=== PATIENT | male | born 1980 | race Caucasian/White ===

== ENCOUNTER 2022-10-23 13:07 | Emergency (ER) | payer MEDICAID ==
[~2022-10-23] VITALS: Ht 185.4 cm; Wt 68.6 kg
[2022-10-23] MEDS ORDERED: proCHLORperazine 10 MG/2 ml inj IV ONE (13:50)
[2022-10-23] MEDS ORDERED: morphine 4 MG/ML inj SYRINge IV ONE (13:50)
[2022-10-23] MEDS ORDERED: diphenhydrAMINE 50 mg/ml inj IV ONE (13:50)
[2022-10-23] MEDS ORDERED: normal saline 1000ml 1,000 ML IV ONE ×3 (13:55→14:40)
--- NOTE | 2022-10-23 13:56 | NUR ---
lab at bedside
[2022-10-23 14:17] LABS: BASOPHILS % (AUTO) 0.4 % (0-1); EOSINOPHILS % (AUTO) 0 % (0-6); HEMATOCRIT 46.6 % (42.0-52.0); LYMPHOCYTES # (AUTO) 0.6 X10'3 (1.1-4.8); LYMPHOCYTES % (AUTO) 8.1 % (21-51); MEAN CORPUSCULAR HEMOGLOBIN 31.6 PG (27.0-31.0); MEAN CORPUSCULAR HGB CONC 34.4 g/dL (33.0-36.5); MEAN CORPUSCULAR VOLUME 91.9 FL (78-98); MEAN PLATELET VOLUME 7.9 FL (7.4-10.4); MONOCYTES # (AUTO) 0.3 X10'3 (0-0.9); MONOCYTES % (AUTO) 3.7 % (2-12); NEUTROPHILS % (AUTO) 87.8 % (42-75); PLATELET COUNT 208 X10'3 (140-440); RED BLOOD COUNT 5.07 X10'6 (4.70-6.10); RED CELL DISTRIBUTION WIDTH 13.4 % (11.5-14.5)
[2022-10-23 14:29] LABS: ALANINE AMINOTRANSFERASE 16 U/L (12-78); ALBUMIN 4.7 G/DL (3.4-5.0); ALBUMIN/GLOBULIN RATIO 1.7 (1.1-1.5); ALKALINE PHOSPHATASE 63 IU/L (46-116); ANION GAP 13 (8-16); ASPARTATE AMINO TRANSFERASE 26 U/L (10-37); BLOOD UREA NITROGEN 13 MG/DL (7-18); BUN/CREATININE RATIO 11.2 (5.4-32.0); CALCIUM 9.8 MG/DL (8.5-10.1); CHLORIDE 102 MMOL/L (99-107); CREATININE 1.16 MG/DL (0.60-1.10); GLUCOSE 147 MG/DL (70-104); LIPASE 230 U/L (73-393); POTASSIUM 3.6 MMOL/L (3.5-5.1); SODIUM 138 MMOL/L (135-145); TOTAL CARBON DIOXIDE 23.5 MMOL/L (24-32); TOTAL PROTEIN 7.5 G/DL (6.4-8.2); eGFR 70 ML/MIN
[2022-10-23] MEDS ORDERED: dexamethasone sod phosphate 10mg/ml inj IV STA (15:57)
[2022-10-23] MEDS ORDERED: LORazepam 2 mg/ml vial IV ONE (16:00)
[2022-10-23 16:27] VITALS: BP 113/53
[2022-10-23] MEDS ORDERED: haloperidol lactate 5mg/ml inj IM ONE (17:25)
[2022-10-23] MEDS ORDERED: ONDA8TAB13 PO (17:44)
== END 2022-10-23 18:11 | disposition home or self-care (01) ==
LOC: ER 13:07
DX: R11.2 Nausea with vomiting, unspecified (principal); R19.7 Diarrhea, unspecified; F12.90 Cannabis use, unspecified, uncomplicated
CPT/HCPCS: 36415; 74176; 80053; 83605; 83690; 84145; 85025; 96361; 96372; 96374; 96375; 99285; J0780; J1100; J1200; J1630; J2060; J2270; J7030

== ENCOUNTER 2022-11-14 16:59 | Emergency (ER) | payer MEDICAID ==
[~2022-11-14] VITALS: Ht 185.4 cm; Wt 68.2 kg
[~2022-11-14 16:59] MED LIST: ONDA8TAB13 PO
[2022-11-14] MEDS ORDERED: diphenhydrAMINE 50 mg/ml inj IV ONE (17:05)
[2022-11-14] MEDS ORDERED: normal saline 1000ML IV soln IVB ONE (17:05)
[2022-11-14] MEDS ORDERED: metoclopramide 5 mg/ml inj IV ONE (17:05)
[2022-11-14] MEDS ORDERED: morphine 4 MG/ML inj SYRINge IV ONE (17:10)
[2022-11-14 17:29] LABS: BASOPHILS % (AUTO) 0.3 % (0-1); EOSINOPHILS % (AUTO) 0 % (0-6); HEMATOCRIT 42.3 % (42.0-52.0); HEMOGLOBIN 14.7 g/dl (14.0-17.9); LYMPHOCYTES # (AUTO) 0.7 X10'3 (1.1-4.8); LYMPHOCYTES % (AUTO) 11.1 % (21-51); MEAN CORPUSCULAR HGB CONC 34.6 g/dL (33.0-36.5); MEAN CORPUSCULAR VOLUME 92.4 FL (78-98); MEAN PLATELET VOLUME 7.9 FL (7.4-10.4); MONOCYTES # (AUTO) 0.2 X10'3 (0-0.9); MONOCYTES % (AUTO) 3.4 % (2-12); NEUTROPHILS % (AUTO) 85.2 % (42-75); PLATELET COUNT 153 X10'3 (140-440); RED BLOOD COUNT 4.58 X10'6 (4.70-6.10); RED CELL DISTRIBUTION WIDTH 13.3 % (11.5-14.5); WHITE BLOOD COUNT 5.9 X10'3 (4.5-11.0)
[2022-11-14 17:40] LABS: ALANINE AMINOTRANSFERASE 13 U/L (12-78); ALBUMIN 4.1 G/DL (3.4-5.0); ALBUMIN/GLOBULIN RATIO 1.5 (1.1-1.5); ALKALINE PHOSPHATASE 61 IU/L (46-116); ANION GAP 12 (8-16); ASPARTATE AMINO TRANSFERASE 22 U/L (10-37); BILIRUBIN,TOTAL 0.8 MG/DL (0.1-1.0); BLOOD UREA NITROGEN 12 MG/DL (7-18); BUN/CREATININE RATIO 11.8 (10.0-20.0); CALCIUM 9.5 MG/DL (8.5-10.1); CHLORIDE 104 MMOL/L (99-107); CREATININE 1.02 MG/DL (0.60-1.10); GLUCOSE 122 MG/DL (70-104); LIPASE 124 U/L (73-393); POTASSIUM 3.6 MMOL/L (3.5-5.1); SODIUM 140 MMOL/L (135-145); TOTAL PROTEIN 6.8 G/DL (6.4-8.2); eGFR 81 ML/MIN
[2022-11-14 18:26] VITALS: BP 100/45
[2022-11-14] MEDS ORDERED: ONDA8TAB13 PO (18:41)
[2022-11-14] MEDS ORDERED: HYDR-3965 PO (19:07)
[2022-11-14 19:19] LABS: CLARITY,URINE CLEAR (Clear); COLOR,URINE YELLOW (Yellow); GLUCOSE, URINE NEGATIVE (Neg); KETONES,URINE >=80 mg/dl (Neg); LEUKOCYTE ESTERASE ,URINE NEGATIVE (Neg); NITRITES, URINE NEGATIVE (Neg); OCCULT BLOOD,URINE NEGATIVE (Neg); PH,URINE 8.5 (4.8-8.0); PROTEIN,URINE TRACE mg/dl (Neg); UROBILINOGEN,URINE 0.2 E.U/dL (0.2-1.0)
[2022-11-14 19:25] LABS: UA COLLECTION TYPE CLN CATCH MIDSTREAM
[2022-11-14 19:26] LABS: RBC,URINE 0-2 /HPF (0-2); WBC,URINE 0-4 /HPF (0-4)
[2022-11-14 19:27] LABS: BACTERIA,URINE NONE SEEN /HPF (Neg); SQUAMOUS EPITHELIAL CELL,UR FEW /LPF (FEW)
== END 2022-11-14 19:22 | disposition home or self-care (01) ==
LOC: ER 17:01
DX: R11.2 Nausea with vomiting, unspecified (principal); R19.7 Diarrhea, unspecified; R10.9 Unspecified abdominal pain; F12.90 Cannabis use, unspecified, uncomplicated; Z72.89 Other problems related to lifestyle; Z79.899 Other long term (current) drug therapy
CPT/HCPCS: 36415; 74176; 80053; 81001; 83690; 85025; 96374; 96375; 99285; J1200; J2270; J2765; J7030

== ENCOUNTER 2023-04-05 08:27 | Emergency (ER) | payer MEDICAID ==
[~2023-04-05] VITALS: Ht 185.4 cm; Wt 69.5 kg
[2023-04-05 08:57] VITALS: TEMP 97.8
[2023-04-05 09:33] LABS: BILIRUBIN,URINE NEGATIVE (Neg); CLARITY,URINE CLEAR (Clear); COLOR,URINE STRAW (Yellow); GLUCOSE, URINE NEGATIVE (Neg); KETONES,URINE NEGATIVE (Neg); LEUKOCYTE ESTERASE ,URINE NEGATIVE (Neg); NITRITES, URINE NEGATIVE (Neg); OCCULT BLOOD,URINE NEGATIVE (Neg); PROTEIN,URINE NEGATIVE (Neg); UROBILINOGEN,URINE 0.2 E.U/dL (0.2-1.0)
[2023-04-05 09:36] LABS: UA COLLECTION TYPE CLN CATCH MIDSTREAM
[2023-04-05 09:36] LABS: BASOPHILS % (AUTO) 1.3 % (0-1); EOSINOPHILS % (AUTO) 1.1 % (0-6); HEMATOCRIT 45.6 % (42.0-52.0); HEMOGLOBIN 15.7 g/dl (14.0-17.9); LYMPHOCYTES # (AUTO) 0.8 X10'3 (1.1-4.8); LYMPHOCYTES % (AUTO) 24.4 % (21-51); MEAN CORPUSCULAR HEMOGLOBIN 31.9 PG (27.0-31.0); MEAN CORPUSCULAR HGB CONC 34.4 g/dL (33.0-36.5); MEAN CORPUSCULAR VOLUME 92.6 FL (78-98); MEAN PLATELET VOLUME 7.7 FL (7.4-10.4); MONOCYTES # (AUTO) 0.3 X10'3 (0-0.9); MONOCYTES % (AUTO) 10.4 % (2-12); NEUTROPHILS % (AUTO) 62.8 % (42-75); PLATELET COUNT 112 X10'3 (140-440); RED BLOOD COUNT 4.93 X10'6 (4.70-6.10); RED CELL DISTRIBUTION WIDTH 12.1 % (11.5-14.5); WHITE BLOOD COUNT 3.1 X10'3 (4.5-11.0)
[2023-04-05 09:38] LABS: ALANINE AMINOTRANSFERASE 18 U/L (12-78); ALBUMIN/GLOBULIN RATIO 1.4 (1.1-1.5); ALKALINE PHOSPHATASE 57 IU/L (46-116); ANION GAP 9 (8-16); ASPARTATE AMINO TRANSFERASE 24 U/L (10-37); BILIRUBIN,TOTAL 0.5 MG/DL (0.1-1.0); BLOOD UREA NITROGEN 10 MG/DL (7-18); BUN/CREATININE RATIO 9.7 (10.0-20.0); CHLORIDE 105 MMOL/L (99-107); CREATININE 1.03 MG/DL (0.60-1.10); GLUCOSE 93 MG/DL (70-104); LIPASE 262 U/L (73-393); POTASSIUM 3.9 MMOL/L (3.5-5.1); SODIUM 142 MMOL/L (135-145); TOTAL CARBON DIOXIDE 27.9 MMOL/L (24-32); TOTAL PROTEIN 6.9 G/DL (6.4-8.2); eCRCL 94 ML/MIN; eGFR 80 ML/MIN
[2023-04-05] MEDS ORDERED: ondansetron/PF 4mg/2ml inj IM ONE (13:35)
[2023-04-05] MEDS ORDERED: ketorolac trometh. 30mg/ml inj. IV ONE (13:35)
[2023-04-05] MEDS ORDERED: morphine 4 MG/ML inj SYRINge IV ONE (13:35)
[2023-04-05] MEDS ORDERED: normal saline 1000ML IV soln IVB ONE (13:35)
[2023-04-05] MEDS ORDERED: famotidine/PF 10 mg/ml inj IV ONE (13:35)
[2023-04-05 14:17] LABS: ETHANOL < 10 MG/DL (<10); MAGNESIUM 1.9 MG/DL (1.5-2.4)
[2023-04-05] MEDS ORDERED: FAMO-128 PO (15:35)
[2023-04-05] MEDS ORDERED: DICY10CA88 PO (15:35)
[2023-04-05] MEDS ORDERED: METO-292 PO (15:35)
[2023-04-05] MEDS ORDERED: NAPR-56 PO (15:35)
[2023-04-05 16:04] VITALS: BP 121/75; PULSE 58; RESP 16; O2SAT 97
[2023-04-05 16:19] LABS: URINE AMPHETAMINE SCREEN NEGATIVE (Neg); URINE BARBITUATE SCREEN NEGATIVE (Neg); URINE BENZODIAZEPINES SCREEN NEGATIVE (Neg); URINE CANNABINOID SCREEN POSITIVE (Neg); URINE COCAINE SCREEN NEGATIVE (Neg); URINE METHADONE SCREEN NEGATIVE (Neg); URINE OPIATE SCREEN NEGATIVE (Neg); URINE PHENCYCLIDINE SCREEN NEGATIVE (Neg)
== END 2023-04-05 16:07 | disposition home or self-care (01) ==
LOC: ER 08:28
DX: K80.50 Calculus of bile duct without cholangitis or cholecystitis without obstruction (principal)
CPT/HCPCS: 36415; 76700; 80053; 80305; 80320; 81003; 83690; 83735; 85025; 96361; 96372; 96374; 96375; 99285; J1885; J2270; J2405; J3490; J7030

== ENCOUNTER 2023-04-22 05:25 | Emergency (ER) | payer MEDICAID ==
[~2023-04-22] VITALS: Ht 185.4 cm; Wt 68.2 kg
[~2023-04-22 05:25] MED LIST changes: +DICY10CA88 PO; +FAMO-128 PO; +METO-292 PO; +NAPR-56 PO
[2023-04-22 05:27] VITALS: BP 115/55; PULSE 62; RESP 18; TEMP 98.7; O2SAT 100
[2023-04-22] MEDS ORDERED: normal saline 1000ML IV soln IVB ONE (05:45)
[2023-04-22] MEDS ORDERED: ketorolac trometh. 30mg/ml inj. IM ONE (06:05)
[2023-04-22 06:10] LABS: ALANINE AMINOTRANSFERASE 43 U/L (12-78); ALBUMIN/GLOBULIN RATIO 1.4 (1.1-1.5); ALKALINE PHOSPHATASE 67 IU/L (46-116); ANION GAP 9 (8-16); ASPARTATE AMINO TRANSFERASE 98 U/L (10-37); BILIRUBIN,TOTAL 0.4 MG/DL (0.1-1.0); BLOOD UREA NITROGEN 16 MG/DL (7-18); BUN/CREATININE RATIO 14.8 (10.0-20.0); CHLORIDE 102 MMOL/L (99-107); CREATININE 1.08 MG/DL (0.60-1.10); GLUCOSE 81 MG/DL (70-104); POTASSIUM 3.6 MMOL/L (3.5-5.1); SODIUM 141 MMOL/L (135-145); TOTAL CARBON DIOXIDE 29.8 MMOL/L (24-32); TOTAL PROTEIN 6.8 G/DL (6.4-8.2); eCRCL 88 ML/MIN; eGFR 76 ML/MIN
[2023-04-22 06:14] LABS: LIPASE 198 U/L (73-393)
[2023-04-22 06:33] LABS: EOSINOPHILS # (AUTO) 0.2 X10'3 (0-0.9); HEMOGLOBIN 14.8 g/dl (14.0-17.9)
[2023-04-22 06:36] LABS: BASOPHILS # (AUTO) 0.1 X10'3 (0-0.2); BASOPHILS % (AUTO) 0.5 % (0-1); EOSINOPHILS % (AUTO) 1.7 % (0-6); HEMATOCRIT 42.3 % (42.0-52.0); LYMPHOCYTES # (AUTO) 2.5 X10'3 (1.1-4.8); LYMPHOCYTES % (AUTO) 23.8 % (21-51); MEAN CORPUSCULAR HEMOGLOBIN 32.2 PG (27.0-31.0); MEAN CORPUSCULAR VOLUME 91.8 FL (78-98); MEAN PLATELET VOLUME 8.7 FL (7.4-10.4); MONOCYTES # (AUTO) 0.7 X10'3 (0-0.9); MONOCYTES % (AUTO) 6.2 % (2-12); NEUTROPHILS # (AUTO) 7.2 X10'3 (1.8-7.7); NEUTROPHILS % (AUTO) 67.8 % (42-75); PLATELET COUNT 141 X10'3 (140-440); RED BLOOD COUNT 4.61 X10'6 (4.70-6.10); RED CELL DISTRIBUTION WIDTH 12.7 % (11.5-14.5); WHITE BLOOD COUNT 10.6 X10'3 (4.5-11.0)
[2023-04-22] MEDS ORDERED: diphenhydrAMINE 50 mg/ml inj IV ONE (07:30)
[2023-04-22] MEDS ORDERED: glycopyrrolate 0.2mg/ml inj IV ONE (07:30)
[2023-04-22] MEDS ORDERED: metoclopramide 5 mg/ml inj IV ONE (07:30)
== END 2023-04-22 10:03 | disposition home or self-care (01) ==
LOC: ER 05:26
DX: R11.2 Nausea with vomiting, unspecified (principal); R10.11 Right upper quadrant pain; F12.90 Cannabis use, unspecified, uncomplicated; Z79.899 Other long term (current) drug therapy
CPT/HCPCS: 36415; 76700; 80053; 83690; 84484; 85025; 93005; 96361; 96372; 96374; 96375; 99285; J1200; J1885; J2765; J3490; J7030

== ENCOUNTER 2025-04-30 12:21 | Emergency (ER) | payer MEDICAID, OTHER ==
[~2025-04-30] VITALS: Ht 185.4 cm; Wt 69.5 kg
[~2025-04-30 12:21] MED LIST changes: -NAPR-56 PO; +ONDA-245 PO; -ONDA8TAB13 PO
[2025-04-30 12:24] VITALS: BP 149/107; PULSE 90; RESP 17; TEMP 97.8; O2SAT 97
[2025-04-30] MEDS ORDERED: CLON1TAB12 PO (12:36)
[2025-04-30] MEDS ORDERED: TAMS-55 (12:36)
[2025-04-30] MEDS ORDERED: SUMA50TA17 PO (12:36)
--- NOTE | 2025-04-30 12:57 | Physician Documentation ---
History of Present Illness ~ Chief Complaint: Suicidal Ideation Stated Complaint: SI Time Seen by MD: 12:29 HPI This very pleasant yet tearful 44-year-old male presents to the ED with an initial complaint of panic attacks and a reported SI. Denies any current SI or history of self-harm. States that he has the tail end of a divorce and custody arrangement in his having difficulty coping with not seen his 60-year-old son due to 50% custody. Also states he has missed work recently in is concerned he may lose his job. He currently denies any intention to harm himself as he realizes that that was harm his child.. Concern is that he has not been able to sleep secondary to panic attacks. Took his prescribed Seroquel this morning because he is unable to sleep last night in still was unable to sleep.. Medication Reconciliation Allergies: Coded Allergies: No Known Allergies (Unverified , 04/22/23) Scheduled Dicyclomine Hcl* (Bentyl*), 1 CAP PO TID Famotidine (Pepcid), 1 TAB PO Q12H Metoclopramide HCl (Reglan), 1 TAB PO Q6H Ondansetron 8mg ODT (Ondansetron Odt), 1 TAB PO Q6H Scheduled PRN Clonazepam (Clonazepam), 1 TAB PO BID PRN for for anxiety/agitation, (Reported) Clonazepam (Klonopin), 1 TAB PO Q12H PRN PRN for anxiety Ondansetron 8mg ODT (Ondansetron Odt), 1 TAB PO TID PRN for nausea/vomiting Miscellaneous Medications Sumatriptan Succinate (Sumatriptan Succinate), 1 TAB PO, (Reported) Tamsulosin Hcl* (Flomax*), (Reported) Past Medical History Past Medical History: Cholelithiasis, *MUSCULOSKELETAL*, *PSYCH* Past Surgical History: no surgical history Alcohol Use: Sober Drug Use: marijuana Lives In: Home Occupation: employed Review of Systems All Other Systems at this time: Reviewed and Negative ROS As stated above in the HPI, otherwise all systems are reviewed and negative. Physical Exam Vital Signs: Temperature: 97.8, Source: Oral, Heart Rate: 90, Respiratory Rate: 17, BP: 149/107, Pulse Oximetry: 97, Weight: 69.500 Physical Exam General: Alert, no apparent distress. Cardiovascular: Regular rate and rhythm, no murmurs. Neurologic: Oriented x4. Psychiatric: tearful Skin: Normal color, warm and dry. No edema, no ecchymosis. Progress Results/Orders Results/Orders Vital Signs 04/30/25 04/30/25 12:24 13:06 Temp 97.8 Pulse 90 Resp 17 B/P (MAP) 149/107 Pulse Ox 97 Medical Decision Making Findings Patient length with this patient and he was adamant that he will not harm himself. He verbalized that his primary frustrations that he will not be able to see his son on a daily basis secondary to a 50 50 custody agreement. Agreed that being placed in his psychiatric hold would not be ideal for his situation. He also reported that he feels as though he can not sleep secondary to the situation. And he he has nearly run out of clonazepam. He felt that has only option was to take Seroquel and when Seroquel did not work he called EMS. This patient clearly is in crisis secondary to divorce. Do not see any reason to place him on a hold as I he does not present as a risk for harm to himself or others. Has a good safety plan has a job and a house to live in. I am going to send him an additional script of clonazepam to help him through the divorce crisis and to help with sleep Differential Dx:Considerations: Include: Alcohol abuse, Anxiety, Bipolar disorder, Conversion disorder, Depression, Encephaloathy, Homicidal, Panic disorder, Personality disorder, Schizophrenia, Substance abuse, Suicidal, Other Departure Disposition: 01 HOME / SELF CARE / HOMELESS Impression: Primary Impression: Anxiety disorder Discharge Instructions: Panic Attack, Suicidal Feelings: How to Help Yourself Referrals: NO PRIMARY CARE PROVIDER (PCP) Prescriptions Clonazepam (Klonopin) 0.5 Mg Tablet 1 TAB PO Q12H PRN PRN for anxiety MDD 2 for 10 Days, #20 TAB 0 Refills Prov: DYLAN MANRIQUEZ NP 04/30/25 Education Educated: Patient Educated regarding: diagnosis Signature Scribe Signature: y Attestation: Scribed for Dylan Manriquez [employer] by Dylan Meza NP . 04/30/25 13:36 DYLAN MANRIQUEZ NP Apr 30, 2025 12:57
[2025-04-30] MEDS ORDERED: CLON-850 PO (13:01)
== END 2025-04-30 13:43 | disposition home or self-care (01) ==
LOC: ER 12:22
DX: F41.9 Anxiety disorder, unspecified (principal); F12.90 Cannabis use, unspecified, uncomplicated; F10.90 Alcohol use, unspecified, uncomplicated; Y90.9 Presence of alcohol in blood, level not specified
CPT/HCPCS: 99283

== ENCOUNTER 2025-07-02 04:48 | Emergency (ER) | payer BC, OTHER ==
[~2025-07-02] VITALS: Ht 210.8 cm; Wt 79.0 kg
[~2025-07-02 04:48] MED LIST changes: +CLON-850 PO; +CLON1TAB12 PO; +SUMA50TA17 PO; +TAMS-55
[2025-07-02 04:53] VITALS: TEMP 97.8
--- NOTE | 2025-07-02 05:07 | Physician Documentation ---
History of Present Illness ~ Chief Complaint: Chest Pain Stated Complaint: CHEST WALL PAIN M ALS Time Seen by MD: 04:59 HPI Patient presents to the emergency room with chest pain and epigastric pain. Onset 2-1/2 hours prior to arrival. No prior instances. No history of heartburn. Patient does vape but denies history of blood pressure cholesterol or diabetes. Endorses shortness of breath who states he has had the pain for two days and he has had vomiting as well. Patient states he did some THC two days ago and he does have a history of cyclic vomiting. Medication Reconciliation Allergies: Coded Allergies: No Known Allergies (Unverified , 07/02/25) Scheduled Dicyclomine Hcl* (Bentyl*), 1 CAP PO TID Famotidine (Pepcid), 1 TAB PO Q12H Metoclopramide HCl (Reglan), 1 TAB PO Q6H Ondansetron 8mg ODT (Ondansetron Odt), 1 TAB PO Q6H Scheduled PRN Clonazepam (Clonazepam), 1 TAB PO BID PRN for for anxiety/agitation, (Reported) Clonazepam (Klonopin), 1 TAB PO Q12H PRN PRN for anxiety Ondansetron 8mg ODT (Ondansetron Odt), 1 TAB PO TID PRN for nausea/vomiting Miscellaneous Medications Sumatriptan Succinate (Sumatriptan Succinate), 1 TAB PO, (Reported) Tamsulosin Hcl* (Flomax*), (Reported) Past Medical History Past Medical History: Cholelithiasis, *MUSCULOSKELETAL*, *PSYCH* Past Surgical History: no surgical history Alcohol Use: Sober Drug Use: marijuana Lives In: Home Occupation: employed Review of Systems ROS All review of systems negative except as per HPI Physical Exam Vital Signs: Temperature: 97.8, Source: Oral, Heart Rate: 102, Respiratory Rate: 22, BP: 126/97, Pulse Oximetry: 93, Weight: 79.000 Physical Exam General: Patient is awake, alert, oriented x4 in mild distress Head: Normocephalic and atraumatic. Eyes: Conjunctival normal. EOMI. PERRL. ENT: Mucous membranes moist. Neck: Supple, trachea is midline. Chest: Clear to auscultation bilaterally without rales, rhonchi, or wheezes. There is no accessory muscle use or retractions. Cardiac: RRR without murmurs, gallops, or rubs. Abd: Soft, nondistended, epigastric tenderness to palpation without peritonitis Progress Progress Note Patient: YAMILET BRAGG Medical Record: [id number] HOSPITAL : 1980, Age: 44 Sex: Male Location: ER Patient Status: [facility] ER Service Date/Time: 07/02/25638 Ordering Physician: GUS YOUNG MD Exam: CT ABDOMEN PELVIS Exam: CT CT ABDOMEN PELVIS History: abd pain Comparison Study: US ULTRASOUND OF ABDOMEN on DOS: 04/22/23, US ULTRASOUND OF ABDOMEN on DOS: 04/05/23, CT ABDOMEN PELVIS on DOS: 11/14/22 TECHNIQUE: Multidetector CT of the abdomen and pelvis was performed from lung bases to ischial tuberosities. Imaging was performed without IV contrast using axial images. Coronal and sagittal reformats were obtained from the axial data set by the technologist. Radiation Dose Information: CT Dose: CTDI volume is 11.8 mGy. Dose-length product is 578.8 mGy*cm FINDINGS: Evaluation of solid organs is limited due to lack of intravenous contrast use. Findings: Lung Bases: No acute or significant lung base finding. Normal heart size. No pleural or pericardial effusion. Liver: The liver is normal in size. No focal lesions. Gallbladder and Biliary Tree: Surgically absent gallbladder. No biliary ductal dilatation. Standing protecting this is a transcervical Spleen: Unremarkable Pancreas: The pancreas is grossly normal in appearance. Adrenal Glands: Unremarkable Kidneys: Kidneys are grossly normal without calculi or hydronephrosis. GI Tract: The stomach is grossly normal in appearance. The small bowel is normal in caliber. There is mild mucosal thickening in the rectum with fat stranding. No acute appendicitis. Peritoneal cavity: No pneumoperitoneum. No ascites. Lymphadenopathy: No mesenteric, retroperitoneal or periportal lymphadenopathy. Abdominal Wall and Mesentery: Unremarkable. Vasculature: The visualized abdominal aorta is normal in size and caliber. Evaluation of abdominal and pelvic vessels is limited due to lack of intravenous contrast. Pelvic Organs: Unremarkable Urinary Bladder: Grossly unremarkable for degree of distention. Musculoskeletal: No aggressive focal bony lesions, acute fractures or dislocation. Age-indeterminate L1 anterior wedge compression deformity. Soft tissues: Unremarkable IMPRESSION: 1. Findings which may represent mild proctocolitis. 2. Cholecystectomy. Radiation optimization: All CT scans at this facility use at least one of these dose optimization techniques: automated exposure control mA and/or kV adjustment per patient size (includes targeted exams where dose is matched to clinical indication) or iterative reconstruction. Electronically Signed by:ORVILLE CORNEJO MD Date & Time: 07/02/25718 Dictated by: ORVILLE CORNEJO MD Dictation date and time: 07/02/25718 Primary Care Provider: NO PRIMARY CARE PROVIDER cc: GUS YOUNG MD ~ Results/Orders Results/Orders Orders - GUS YOUNG MD Chest,Single View (07/02/25 05:00) Monitor (07/02/25 05:00) Saline Lock (07/02/25 05:00) Oxygen (07/02/25 05:00) Lidocaine 2% Viscous (Xylocaine 2% Visco (07/02/25 05:05) Ct Abdomen Pelvis (07/02/25 06:39) Completed Orders - GUS YOUNG MD Chest,Single View (07/02/25 05:00) PBNP (07/02/25 05:00) Electrocardiogram (07/02/25 05:00) Hs Troponin I W Calculations (07/02/25 05:00) Hs Troponin I W Calculations (07/02/25 07:00) Ondansetron Disint. Tablet (Zofran Odt T (07/02/25 05:05) Mag & Alum Hydrox/Simeth Susp (Maalox Or (07/02/25 05:05) Ketorolac Trometh 15mg/Ml Vial (Toradol (07/02/25 05:30) Nitroglycerin Sublingual Tab (Nitrostat (07/02/25 05:30) Fentanyl/Pf (Fentanyl 0.05 Mg/Ml Syringe (07/02/25 05:30) CMP (07/02/25 05:28) Lipase (07/02/25 06:04) Ct Abdomen Pelvis (07/02/25 06:39) Morphine 4mg/Ml Inj. (Morphine Inj.) (07/02/25 06:05) Vital Signs 07/02/25 07/02/25 07/02/25 07/02/25 04:53 05:47 05:48 06:09 Temp 97.8 Pulse 102 93 Resp 22 22 22 18 B/P (MAP) 126/97 128/82 (97) Pulse Ox 93 100 07/02/25 07/02/25 07/02/25 07/02/25 06:20 06:30 07:59 09:40 Pulse 95 109 104 Resp 24 14 12 17 B/P (MAP) 127/84 (98) 103/82 (89) 132/72 (92) Pulse Ox 92 96 96 O2 Flow Rate 0 0 0 07/02/25 07/02/25 07/02/25 07/02/25 10:50 10:53 11:21 11:25 Pulse 103 100 Resp 14 14 20 14 B/P (MAP) 117/67 (84) 124/70 (88) Pulse Ox 95 99 O2 Flow Rate 0 0 Laboratory Tests Test 07/02/25 05:20 07/02/25 05:55 07/02/25 06:01 07/02/25 07:03 CBC Comment Sodium Level 145 Potassium Level 4.1 Chloride Level 103 Carbon Dioxide Level 28.1 Anion Gap 14 Blood Urea Nitrogen 12 Creatinine 0.89 Estimated GFR/1.73 m2 > 90 BUN/Creatinine Ratio 13.5 Glucose Level 80 Calcium Level 8.0 L Total Bilirubin 0.6 Aspartate Amino Transf (AST/SGOT) 58 H Alanine Aminotransferase (ALT/SGPT) 57 Alkaline Phosphatase 81 Troponin I High Sensitivity 6 5 Pro-B-Type Natriuretic Peptide < 30 Total Protein 6.9 Albumin 4.0 Globulin 2.9 Albumin/Globulin Ratio 1.4 Chemistry Comments Urine Specimen Description Cln catch midstream Urine Color Yellow Urine Clarity Clear Urine pH 7.0 Urine Specific Campbell 1.010 Urine Protein Negative Urine Glucose (UA) Negative Urine Ketones Trace H Urine Occult Blood Trace-intact Urine Nitrite Negative Urine Bilirubin Negative Urine Urobilinogen 1.0 Urine Leukocyte Esterase Negative Urine RBC 0-2 Urine WBC 0-4 Urine Squamous Epithelial Cells None seen Urine Bacteria None seen Urine Mucus None seen Urine Culture Indicated Not ind Volume Urine Centrifuged 10 ml Urine Comment White Blood Count 6.8 Red Blood Count 5.19 Hemoglobin 16.8 Hematocrit 47.4 Mean Corpuscular Volume 91.7 Mean Corpuscular Hemoglobin 32.5 H Mean Corpuscular Hemoglobin Concent 35.5 Red Cell Distribution Width 12.7 Platelet Count 169 Mean Platelet Volume 6.9 L Neutrophils (%) (Auto) 56.2 Lymphocytes (%) (Auto) 36.8 Monocytes (%) (Auto) 4.7 Eosinophils (%) (Auto) 1.3 Basophils (%) (Auto) 1.0 Neutrophils # (Auto) 3.8 Lymphocytes # (Auto) 2.5 Monocytes # (Auto) 0.3 Eosinophils # (Auto) 0.1 Basophils # (Auto) 0.1 Troponin I High Sens Percent Delta 16 Troponin I Hi Sens Absolute Change -1 Lipase 38 EKG/XRAY/CT/US/VASC/MRI EKG : Additional Comment EKG interpreted by myself shows time of 0459, rate 104, sinus tachycardia, normal axis, no ST changes Medical Decision Making Additional information obtaine: old records Findings The patient presented with nausea chest pain and abdominal pain patient has a history of similar episodes he was found to be clinically dehydrated and treated with the IV fluids and antiemetics was also tachycardic, patient admits to anxiety and a history of taking clonazepam he which he has not been able for last two days. The patient's symptoms improve with a cocktail of medications for nausea and IV fluids, patient was also given a benzodiazepine. The patient is able to tolerate oral fluids he has been advised to follow up as an outpatient the patient will be discharged. The patient's monitoring manager was interpreted as a sinus tachycardia. The patient's pulse oximetry was interpreted as normal and adequate. The patient's CT imaging and labs were reviewed. An prior hospitalizations has been reviewed Heart Score: 1 Differential Dx:Considerations: Include: chest wall pain, esophageal reflux/spasm, gastritis, pancreatitis Departure Disposition: HOME / SELF CARE / HOMELESS Impression: Primary Impression: Abdominal pain Qualified Codes: R10.13 - Epigastric pain Discharge Instructions: Nonspecific Chest Pain, Adult Departure Forms: Excuse form Work or School Excused From: Work Excuse beginning now through the following date: Jul 03, 2025 May Return but still avoid physical Activity from now until: Jul 04, 2025 May Return to full physical activity as of: Jul 04, 2025 Additional Instructions: May return to work no restrictions 07/05/25 Referrals: NO PRIMARY CARE PROVIDER (PCP) Signature Scribe Signature: No scribe Attestation: The note accurately reflects work and decisions made by me.Gus Young MD 07/02/25 19:34 The note accurately reflects work and decisions made by me.Rosanna Harmon MD 07/02/25 15:34 GUS YOUNG MD Jul 02, 2025 05:07 ROSANNA HARMON MD Jul 02, 2025 07:30
[2025-07-02] MEDS: ondansetron 4mg rapidly disintigrating tab PO ONE (05:10)
[2025-07-02] MEDS: mag hydrox/Alum hydrox/simeth 30ml oral suspension PO ONE (05:12)
[2025-07-02] MEDS: LIDOcaine 2% Viscous 15ml cup MM ONE (05:12)
--- NOTE | 2025-07-02 05:26 | RADIOLOGY REPORT ---
CHEST RADIOGRAPH Indication: CP Technique: Single frontal view of the chest was obtained Comparison: None FINDINGS: Lines and Tubes: None Lungs: No focal consolidation. Pleura: No effusion. No pneumothorax. Cardiomediastinal contours: Unremarkable Bones: No acute osseous abnormality. IMPRESSION: 1. No acute cardiopulmonary disease.
--- NOTE | 2025-07-02 05:28 | ELECTROCARDIOGRAPH REPORT ---
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 TAMICA Yang Measurements Intervals [place] Rate: 104 P: 61 OK: 150 QRS: 50 QRSD: 93 T: 62 QT: 347 QTc: 457 Interpretive Statements Sinus tachycardia ST elev, probable normal early repol pattern Electronically Signed On 07-04-2025 18:00:[address] TAMICA Yang Please click the below link to view image of tracing.
[2025-07-02] MEDS: ketorolac trometh 15mg/ml vial 15 MG/ML ML IV ONE (05:47)
[2025-07-02] MEDS: fentaNYL/PF 50MCG/1 ML 2ML syringe IV ONE (05:48)
[2025-07-02 06:01] LABS: CREATININE 0.89 MG/DL (0.60-1.10); TOTAL CARBON DIOXIDE 28.1 MMOL/L (24-32); eCRCL 121 ML/MIN; eGFR > 90 ML/MIN
[2025-07-02 06:19] LABS: MEAN PLATELET VOLUME 6.9 FL (7.4-10.4); RED CELL DISTRIBUTION WIDTH 12.7 % (11.5-14.5)
[2025-07-02] MEDS: morphine 4 MG/ML inj SYRINge IV ONE (06:20)
[2025-07-02 06:30] LABS: PRO BRAIN NATRIURETIC PEPTIDE < 30 PG/ML (0-125)
--- NOTE | 2025-07-02 07:22 | RADIOLOGY REPORT ---
Exam: CT CT ABDOMEN PELVIS History: abd pain Comparison Study: US ULTRASOUND OF ABDOMEN on DOS: 04/22/23, US ULTRASOUND OF ABDOMEN on DOS: 04/05/23, CT ABDOMEN PELVIS on DOS: 11/14/22 TECHNIQUE: Multidetector CT of the abdomen and pelvis was performed from lung bases to ischial tuberosities. Imaging was performed without IV contrast using axial images. Coronal and sagittal reformats were obtained from the axial data set by the technologist. Radiation Dose Information: CT Dose: CTDI volume is 11.8 mGy. Dose-length product is 578.8 mGy*cm FINDINGS: Evaluation of solid organs is limited due to lack of intravenous contrast use. Findings: Lung Bases: No acute or significant lung base finding. Normal heart size. No pleural or pericardial effusion. Liver: The liver is normal in size. No focal lesions. Gallbladder and Biliary Tree: Surgically absent gallbladder. No biliary ductal dilatation. Standing protecting this is a transcervical Spleen: Unremarkable Pancreas: The pancreas is grossly normal in appearance. Adrenal Glands: Unremarkable Kidneys: Kidneys are grossly normal without calculi or hydronephrosis. GI Tract: The stomach is grossly normal in appearance. The small bowel is normal in caliber. There is mild mucosal thickening in the rectum with fat stranding. No acute appendicitis. Peritoneal cavity: No pneumoperitoneum. No ascites. Lymphadenopathy: No mesenteric, retroperitoneal or periportal lymphadenopathy. Abdominal Wall and Mesentery: Unremarkable. Vasculature: The visualized abdominal aorta is normal in size and caliber. Evaluation of abdominal and pelvic vessels is limited due to lack of intravenous contrast. Pelvic Organs: Unremarkable Urinary Bladder: Grossly unremarkable for degree of distention. Musculoskeletal: No aggressive focal bony lesions, acute fractures or dislocation. Age-indeterminate L1 anterior wedge compression deformity. Soft tissues: Unremarkable IMPRESSION: 1. Findings which may represent mild proctocolitis. 2. Cholecystectomy. Radiation optimization: All CT scans at this facility use at least one of these dose optimization techniques: automated exposure control mA and/or kV adjustment per patient size (includes targeted exams where dose is matched to clinical indication) or iterative reconstruction.
[2025-07-02] MEDS: metoclopramide 5 mg/ml inj IV ONE (07:54)
[2025-07-02] MEDS: normal saline 1000ML IV soln IVB ONE ×3 (07:54→10:50)
[2025-07-02 08:21] LABS: LEUKOCYTE ESTERASE ,URINE NEGATIVE (Neg); NITRITES, URINE NEGATIVE (Neg); OCCULT BLOOD,URINE TRACE-INTACT (Neg)
[2025-07-02 08:23] LABS: UA COLLECTION TYPE CLN CATCH MIDSTREAM
[2025-07-02 08:43] LABS: MUCUS STRANDS NONE SEEN /LPF (Neg); SQUAMOUS EPITHELIAL CELL,UR NONE SEEN /LPF (FEW)
[2025-07-02] MEDS: midazolam 1 mg/ML 2ml injection IV ONE (10:50)
[2025-07-02 11:21] VITALS: BP 124/70; PULSE 100; O2SAT 99
[2025-07-02 11:25] VITALS: RESP 14
== END 2025-07-02 11:33 | disposition home or self-care (01) ==
LOC: ER 04:48
DX: R10.13 Epigastric pain (principal); F12.90 Cannabis use, unspecified, uncomplicated; Z79.899 Other long term (current) drug therapy
CPT/HCPCS: 36415; 71045; 74176; 80053; 81001; 83690; 83880; 84484; 85025; 93005; 96361; 96374; 96375; 99285; J1200; J1885; J2250; J2270; J2765; J3010; J7030